=== PATIENT | male | born 1960 ===

== ENCOUNTER 2024-07-31 13:47 | Outpatient (AMB) | payer BC, SELFPAY ==
--- NOTE | 2024-07-31 13:48 | MHC.OFFVIS ---
Vital Signs 07/31/24 13:55 Height 5 ft 11 in Weight 232 lb BMI 32.4 BP 116/67 Blood Pressure Location Rt brachial Position Sitting Pulse 74 Intake Visit Reasons: Cyst on head, remove Intake Note: Patient here for cyst on left posterior scalp. Hx of cysts removed by Dr. Gaines. Patient c/o: tenderness. Associate Product Integrity Engineer Required: No Accompanied by: Self / Same As Patient Allergies penicillin G Allergy (Mild, Verified 07/31/24 13:54) Unknown Medication List - Last Reconciled 07/31/24 by Andrew Lee MD atorvastatin 10 mg PO DAILY dapagliflozin propanediol (Farxiga) 10 mg PO DAILY ibuprofen 800 mg PO TID metformin ER 1,000 mg PO BID metoprolol succinate ER 50 mg PO DAILY sacubitril-valsartan 24-26 mg (Entresto) 1 tab PO BID semaglutide (Ozempic) mg subcut sildenafil 50 mg PO DAILY PRN sitagliptin phos-metformin 50-1,000 mg ER (Janumet XR) 2 tabs PO DAILY spironolactone 25 mg PO DAILY tamsulosin 0.4 mg PO DAILY HPI Comments Details: Patient presents with painful left posterior scalp mass. He has had a cyst here for many years time. It is inked increasing in size over the last week and become much more symptomatic. He has had other cysts excised in the past. Chart was reviewed and patient evaluated ON LICENSE OF [facility] Medical History (Updated 07/31/24 @ 13:55 by LUIS Gregg) Diabetes mellitus HTN (hypertension) Physical Exam Vital Signs: Last Vital Signs Pulse 74 07/31/24 13:55 BP 116/67 07/31/24 13:55 BMI result Body Mass Index 32.4 HEENT Other: Large roughly 3 x 2 cm infected sebaceous cyst/scalp pilar cyst Office Procedures I&D Drain Details: Risks, benefits, alternatives of incision drainage of complex left 3 x 2 cm infected scalp cyst were reviewed the patient included but not limited to bleeding, recurrence, numbness, pain, scarring the patient wished to proceed. All questions answered. After appropriate positioning, patient underwent 1% lidocaine and Betadine prep and incision and drainage of posterior infected scalp cyst. Wound was uneventfully drained purulence, irrigated, secured hemostasis, packed, and dressing applied. Patient tolerated procedure well. 23714-Tq[place]xz[place] of Skin Abscess, complex All charges added?: Procedure code (CPT) selection complete Assessment & Plan Assessment & Plan (1) Infected sebaceous cyst: Code(s): L72.3 - Sebaceous cyst; L08.9 - Local infection of the skin and subcutaneous tissue, unspecified Category: Surgical Plan: Patient will be given antibiotics, he is analgesics at home, local wound care instructions and back and changes will be provided in the office tomorrow and all questions answered. Patient will see me as noted above or p.r.n.. Orders: Orders AMB Incision & Drainage Today L08.9 - Local infection of the skin and subcutaneous tissue, unspecified, L72.3 - Sebaceous cyst Coding Level of Care Code New Pt Level 5 (86936) Diagnoses Infected sebaceous cyst L72.3; L08.9 CPT Codes I&D Drain - Drain 2: 20727-Rxsjxqde of Skin Abscess, complex ([id number])
[2024-07-31 13:55] VITALS: BP 116/67; PULSE 74; BMI 32.4
== END 2024-07-31 14:10 | disposition home or self-care (01) ==
PROVIDERS: PCP Internal Medicine; Referring Provider Internal Medicine; Visit Provider Surgery
DX: L08.9 Local infection of the skin and subcutaneous tissue, unspecified (principal); L72.3 Sebaceous cyst
CPT/HCPCS: 10060; 99204

== ENCOUNTER → 2024-07-31 13:47 | Outpatient (BNVA) | payer BC, SELFPAY | PROVIDERS: PCP Internal Medicine; Referring Provider Internal Medicine; Visit Provider Surgery | DX: L72.3 Sebaceous cyst (principal); L08.9 Local infection of the skin and subcutaneous tissue, unspecified | CPT/HCPCS: 10060 ==

== ENCOUNTER 2024-08-01 10:53 | Outpatient (AMB) | payer BC, SELFPAY ==
--- NOTE | 2024-08-01 10:59 | MHC.OFFVIS ---
Intake Visit Reasons: S/p I&D Lt post scalp~ cyst Intake Note: Patient here s/p scalp cyst I&D. Started cipro course yesterday. Patient c/o: packing present. Denies pain, oozing. Brewery Representative Required: No Accompanied by: Self / Same As Patient Allergies penicillin G Allergy (Mild, Verified 08/01/24 11:00) Unknown HPI Comments Details: Patient is status post I&D of posterior scalp infected cyst. He has had marked improvement of his symptoms. [facility] Medical History (Updated 07/31/24 @ 13:55 by LUIS Gregg) Diabetes mellitus HTN (hypertension) Physical Exam HEENT Other: Packing removed. Wound granulating well. Dressing reapplied. Assessment & Plan Assessment & Plan (1) Status post incision and drainage: Code(s): Z98.890 - Other specified postprocedural states Category: Medical Plan Patient has been given local instructions, and will see me as directed. All questions answered. He should complete his antibiotic course as well. Coding Level of Care Code Global (21348) Diagnoses Status post incision and drainage Z98.890
== END 2024-08-01 11:14 | disposition home or self-care (01) ==
PROVIDERS: PCP Internal Medicine; Visit Provider Surgery
DX: Z98.890 Other specified postprocedural states (principal)
CPT/HCPCS: 99024

== ENCOUNTER → 2024-08-01 10:53 | Outpatient (BNVA) | payer BC, SELFPAY | PROVIDERS: PCP Internal Medicine; Visit Provider Surgery ==

== ENCOUNTER 2024-08-07 14:08 | Outpatient (AMB) | payer BC, SELFPAY ==
--- NOTE | 2024-08-07 14:11 | MHC.OFFVIS ---
Vital Signs 08/07/24 14:18 Height 5 ft 11 in Weight 234 lb BMI 32.6 BP 112/69 Blood Pressure Location Rt brachial Position Sitting Pulse 76 Intake Visit Reasons: 1 wk follow up S/p I&D Lt post scalp~ cyst Intake Note: Patient here 1wk s/p I&D cyst on Lt post scalp. Finished Cipro course today. Patient c/o: site healing well. Collision Technician Required: No Accompanied by: Self / Same As Patient Allergies penicillin G Allergy (Mild, Verified 08/07/24 14:16) Unknown HPI Comments Details: Patient presents for follow-up status post I&D posterior scalp infected cyst. He is doing quite well. Wound is healing uneventfully. If he is completing his antibiotic course. Minimal discomfort. [facility] Medical History (Updated 07/31/24 @ 13:55 by LUIS Gregg) Diabetes mellitus HTN (hypertension) Physical Exam Vital Signs: Last Vital Signs Pulse 76 08/07/24 14:18 BP 112/69 08/07/24 14:18 BMI result Body Mass Index 32.6 HEENT Other: For scalp wound evaluated. Erythema markedly reduced. Wound was repacked and dressing applied. Assessment & Plan Assessment & Plan (1) Status post incision and drainage: Code(s): Z98.890 - Other specified postprocedural states Category: Surgical Plan Patient will have a few more dressing changes per [place] and will otherwise follow-up as directed. All questions answered. Coding Level of Care Code Global (94006) Diagnoses Status post incision and drainage Z98.890
[2024-08-07 14:18] VITALS: BP 112/69; PULSE 76; BMI 32.6
== END 2024-08-07 14:24 | disposition home or self-care (01) ==
PROVIDERS: PCP Internal Medicine; Visit Provider Surgery
DX: Z98.890 Other specified postprocedural states (principal)
CPT/HCPCS: 99024

== ENCOUNTER → 2024-08-07 14:08 | Outpatient (BNVA) | payer BC, SELFPAY | PROVIDERS: PCP Internal Medicine; Visit Provider Surgery ==

== ENCOUNTER → 2024-08-08 15:08 | Outpatient (BNVA) | payer BC, SELFPAY | PROVIDERS: PCP Internal Medicine; Visit Provider Surgery ==

== ENCOUNTER 2024-08-15 13:07 | Outpatient (AMB) | payer BC, SELFPAY ==
--- NOTE | 2024-08-15 13:08 | MHC.OFFVIS ---
Vital Signs 08/15/24 13:13 Height 5 ft 11 in Weight 234 lb 0.013 oz BMI 32.6 Intake Visit Reasons: Wound care Scalp I&D Intake Note: Patient here s/p I&D abscess on scalp. Last packing dressing change on Wednesday. Patient c/o: reports no complaints. Justowriter Operator Required: No Accompanied by: Self / Same As Patient Allergies penicillin G Allergy (Mild, Verified 08/15/24 13:08) Unknown HPI Comments Details: Patient presents for follow-up. His is undergoing local wound care to his scalp wound. Patient states he has no symptoms. [facility] Medical History Diabetes mellitus HTN (hypertension) Physical Exam Vital Signs: BMI result Body Mass Index 32.6 HEENT Other: Posterior scalp I&D site is nearly completely healed. Infective process is resolved. Assessment & Plan Assessment & Plan (1) Wound check, abscess: Code(s): Z51.89 - Encounter for other specified aftercare Category: Surgical Plan Patient was been given local instructions, and will otherwise follow-up p.r.n.. Should this cyst increased in size or recur, patient was instructed to call the office will be going to undergo elective excision should there be a need for this and there was no infection. All questions answered. Coding Level of Care Code Global (09680) Diagnoses Wound check, abscess Z51.89
[2024-08-15 13:13] VITALS: BMI 32.6
== END 2024-08-15 13:26 | disposition home or self-care (01) ==
PROVIDERS: PCP Internal Medicine; Visit Provider Surgery
DX: Z51.89 Encounter for other specified aftercare (principal)
CPT/HCPCS: 99024

== ENCOUNTER → 2024-08-15 13:07 | Outpatient (BNVA) | payer BC, SELFPAY | PROVIDERS: PCP Internal Medicine; Visit Provider Surgery ==